=== PATIENT | female | born 1965 | race Two or more races ===

== ENCOUNTER 2020-02-05 10:59 | Outpatient (CLI) | payer OTHER ==
[~2020-02-05 10:59] MED LIST: ENBREL50 MG/M1; FOLIC + B12 TAB1 TAB; PHENABID TAB1 TAB.SA PO; PREDNISOLONE5 MG; SYNTHROID200 MCG; TREXALL5 MG
== END 2020-02-05 11:09 | disposition home or self-care (01) ==
LOC: RAD 10:59
PROVIDERS: ATTEND Internal Medicine Cardiovascular Disease
DX: N63.11 Unspecified lump in the right breast, upper outer quadrant (principal); M12.811 Other specific arthropathies, not elsewhere classified, right shoulder

== ENCOUNTER 2020-05-21 10:41 | Outpatient (CLI) | payer OTHER | END 2020-05-21 11:27 | disposition home or self-care (01) | LOC: NUCLEAR 10:41 | PROVIDERS: ATTEND Obstetrics & Gynecology | DX: M81.0 Age-related osteoporosis without current pathological fracture (principal) ==

== ENCOUNTER 2020-05-25 13:07 | Outpatient (CLI) | payer OTHER | END 2020-05-25 13:23 | disposition home or self-care (01) | LOC: SONOGRAMA 13:07 → MAMO-SONO 13:15 → SONOGRAMA 13:23 | PROVIDERS: ATTEND Internal Medicine Endocrinology, Diabetes & Metabolism | DX: E04.2 Nontoxic multinodular goiter (principal) ==

== ENCOUNTER 2022-12-07 08:21 | Outpatient (CLI) | payer OTHER | END 2022-12-07 08:39 | disposition home or self-care (01) | LOC: RAD 08:21 | PROVIDERS: ATTEND Internal Medicine Endocrinology, Diabetes & Metabolism | DX: R10.13 Epigastric pain (principal); E04.2 Nontoxic multinodular goiter; R59.0 Localized enlarged lymph nodes; M19.042 Primary osteoarthritis, left hand; M19.041 Primary osteoarthritis, right hand ==

== ENCOUNTER 2023-06-08 15:00 | Outpatient (CLI) | payer OTHER | END 2023-06-08 15:15 | disposition home or self-care (01) | LOC: TOM 15:00 | PROVIDERS: ATTEND Internal Medicine | DX: R50.9 Fever, unspecified (principal) ==

== ENCOUNTER 2024-05-22 11:14 | Outpatient (CLI) | payer OTHER | END 2024-05-22 11:19 | disposition home or self-care (01) | LOC: EKG 11:14 | PROVIDERS: ATTEND Internal Medicine Cardiovascular Disease | DX: I10 Essential (primary) hypertension (principal) ==

== ENCOUNTER 2025-07-28 10:36 | Outpatient (CLI) | payer OTHER | END 2025-07-28 10:39 | disposition home or self-care (01) | LOC: EKG 10:36 | PROVIDERS: ATTEND Internal Medicine Cardiovascular Disease | DX: I10 Essential (primary) hypertension (principal) ==

== ENCOUNTER → 2025-08-02 | Emergency (ER) | payer OTHER | END | disposition left against medical advice (07) | LOC: ER 20:39 | DX: Z53.21 Procedure and treatment not carried out due to patient leaving prior to being seen by health care provider (principal) ==